=== PATIENT | female | born 1990 | race Caucasian/White ===

== ENCOUNTER 2017-06-12 01:45 | Emergency (ER) | payer OTHER ==
[2017-06-12 02:43] LABS: microscopic required? YES; urine erythrocyte 3+ (NEGATIVE)
[2017-06-12 03:10] VITALS: BP 106/69
== END 2017-06-12 03:10 | disposition home or self-care (01) ==
LOC: ED 01:45
PROVIDERS: Emergency Medicine Emergency Medical Services
DX: N39.0 Urinary tract infection, site not specified (principal)